=== PATIENT | female | born 1980 | race Caucasian/White ===

== ENCOUNTER → 2018-01-10 07:54 | Outpatient (CLI) | payer OTHER, SELFPAY ==
[2018-01-10 10:18] LABS: Hematocrit 41.7 % (37-47); Hemoglobin 14.3 g/dl (12.0-15.0); Mean Corp Hgb Conc 34.3 g/gl (32-36); Mean Corpuscular Hgb 30.3 pg (27.0-32.0); Mean Corpuscular Volume 88.3 fL (81-99); Mean Platelet Vol. 10.1 fl (6.2-12.0); Platelet Count 350 K/mm3 (150-450); RBC Distribution Width CV 13.3 % (11.6-14.6); RBC Distribution Width SD 42.7 fl (35.1-43.9); Red Blood Count 4.72 M/mm3 (4.2-5.4); White Blood Count 6.3 K/mm3 (4.4-11.0)
[2018-01-10 10:22] LABS: Scan Indicated on CBC? Y/N NO
[2018-01-10 10:33] LABS: Insulin 9.8 mU/L (2.6-37.6); Vitamin D,25 Hydroxy 26.7 ng/mL (29.95-100.01)
[2018-01-10 10:35] LABS: Hemoglobin A1c 5.3 % (4.2-6.3)
[2018-01-10 10:36] LABS: ALB/GLOB Ratio 0.9 RATIO (0.9-2.4); AST(SGOT) 19 U/L (15-37); Alanine Aminotransfer ALT/SGPT 26 U/L (13-56); Albumin, Serum 3.6 g/dL (3.2-5.0); Alkaline Phosphatase 80 U/L (45-117); Anion Gap 6 (5-15); BUN 13 mg/dL (7-18); BUN/Creat Ratio 18.1 RATIO (10-20); Calcium,Total 8.5 mg/dL (8.5-10.1); Chloride 106 mmol/L (98-107); Creatinine, Serum 0.72 mg/dL (0.55-1.02); EST Glomerular Filtration Rate 97 mL/min (>60); Est Glom Filt Rate - Afr Amer 117 mL/min (>60); Estradiol 35.7 pg/mL; Follicle Stimulating Hormone 6.9 mIU/mL; Free T3 2.8 pg/mL (2.18-3.98); Globulin 4.2 g/dL (2.2-4.2); Glucose 83 mg/dL (74-106); Potassium 3.9 mmol/L (3.5-5.1); Prolactin 21.7 ng/mL; Protein, Total 7.8 g/dL (6.4-8.2); Sodium Level 138 mmol/L (136-145); T4 Free Direct 1.02 ng/dL (0.76-1.46); Thyroid Stim Hormone (TSH) 1.33 uIU/mL (0.358-3.74)
[2018-01-12 16:09] LABS: DHEA Sulfate 183.1 ug/dL (57.3-279.2); Thyroxin Bind Glob (TBG) 15 ug/mL (13-39)
[2018-01-13 10:03] LABS: Androstenedione 46 ng/dL (41-262); Sex Hormone-binding Globulin 44.4 nmol/L (24.6-122.0)
== END ==
PROVIDERS: Visit Provider Obstetrics & Gynecology
DX: N94.6 Dysmenorrhea, unspecified (principal)
CPT/HCPCS: 36415; 80053; 82157; 82306; 82533; 82627; 82670; 83001; 83036; 83525; 84146; 84270; 84403; 84439; 84442; 84443; 84481; 85027; 82626

== ENCOUNTER → 2018-02-18 16:33 | Outpatient (CLI) | payer OTHER, SELFPAY ==
[2018-02-18 20:03] LABS: Chlamydia Trachomatis by PCR Negative (Negative); Neisserai gonorrhoeae by PCR Negative (Negative); Probe Check PASS; Sample Adequacy Control PASS; Specimen Processing Control PASS
== END ==
PROVIDERS: Visit Provider Obstetrics & Gynecology
DX: Z12.4 Encounter for screening for malignant neoplasm of cervix (principal); Z11.3 Encounter for screening for infections with a predominantly sexual mode of transmission; Z32.01 Encounter for pregnancy test, result positive
CPT/HCPCS: 87491; 87591

== ENCOUNTER → 2018-05-16 10:28 | Outpatient (CLI) | payer OTHER, SELFPAY ==
[2018-05-16 14:34] LABS: Chlamydia Trachomatis by PCR Negative (Negative); Neisserai gonorrhoeae by PCR Negative (Negative); Probe Check PASS; Sample Adequacy Control PASS; Specimen Processing Control PASS
== END ==
PROVIDERS: Visit Provider Obstetrics & Gynecology
DX: Z11.3 Encounter for screening for infections with a predominantly sexual mode of transmission (principal)
CPT/HCPCS: 87491; 87591

== ENCOUNTER → 2018-06-06 10:25 | Outpatient (CLI) | payer OTHER, SELFPAY ==
[2018-06-06 11:47] LABS: Color, Urine Yellow (Yellow); Glucose, Dipstick Normal (Normal); Ketone-Dipstick Negative (Negative); Leukocyte Esterase-Dipstick 25 /ul (Negative); Nitrite-Dipstick Negative (Negative); Occult Blood-Urine Negative /ul (Negative); Protein-Dipstick Negative (Negative); Specific Gravity, Urine 1.015 (1.002-1.030); Urine Bilirubin Dipstick Negative (Negative); Urine Clarity Clear (Clear); Urine Urobilinogen Normal (Normal); Urine pH 6.5 (5.0 - 8.0)
[2018-06-06 11:52] LABS: Absolute Lymphocyte Count 2.25 X10^3/ul (0.83-4.51); Absolute Neutrophil Count 5.9 X10^3/uL (2.0-7.7); Basophil# 0.02 X10^3/uL; Basophil% 0.2 % (0-1); Eosinophil# 0.04 X10^3/uL; Eosinophils% 0.5 % (0-5); Hematocrit 39.9 % (37-47); Hemoglobin 13.3 g/dl (12.0-15.0); Lymphocyte # 2.25 X10^3/ul (4.0); Lymphocyte % 25.6 % (19-41); Mean Corp Hgb Conc 33.3 g/gl (32-36); Mean Corpuscular Hgb 29.5 pg (27.0-32.0); Mean Corpuscular Volume 88.5 fL (81-99); Mean Platelet Vol. 9.7 fl (6.2-12.0); Monocyte# 0.55 X10^3/uL; Monocyte% 6.3 % (0-10); Neutrophil # 5.91 X10^3/uL (2.7-7.7); Neutrophil % 67.3 % (47-70); Platelet Count 293 K/mm3 (150-450); RBC Distribution Width CV 13.5 % (11.6-14.6); RBC Distribution Width SD 43.4 fl (35.1-43.9); Red Blood Count 4.51 M/mm3 (4.2-5.4); White Blood Count 8.8 K/mm3 (4.4-11.0)
[2018-06-06 11:55] LABS: POSITIVE COUNT NO; POSITIVE DIFFERENTIAL NO; POSITIVE MORPHOLOGY NO
[2018-06-06 12:12] LABS: Thyroid Stim Hormone (TSH) 0.03 uIU/mL (0.358-3.74)
[2018-06-06 12:13] LABS: Amphetamine Urine VISTA NEGATIVE (<1000 ng/mL); Barbiturate Urine VISTA NEGATIVE (< 200 ng/mL); Benzodiazepine Urine VISTA NEGATIVE (< 200 ng/mL); Cocaine Urine VISTA NEGATIVE (< 300 ng/mL); Ecstacy Urine VISTA NEGATIVE (< 500 ng/mL); Methadone Urine VISTA NEGATIVE (< 300 ng/mL); PCP Urine VISTA NEGATIVE (< 25 ng/mL); THC Urine VISTA NEGATIVE (< 50 ng/mL); Vista UDS pH Range 6
[2018-06-06 12:53] LABS: HIV - WCH Non-Reactive (Nonreactive)
[2018-06-07 09:53] LABS: HEPATITIS B SURFACE AG Negative (Negative); Hep C Antibodies <0.1 s/co ratio (0.0-0.9)
[2018-06-08 14:16] LABS: Free T3 3.2 pg/mL (2.18-3.98); T4 Free Direct 1.16 ng/dL (0.76-1.46)
[2018-06-10 03:49] LABS: Prenatal RPR NONREACTIVE (NONREACTIVE)
== END ==
PROVIDERS: Visit Provider Obstetrics & Gynecology
DX: Z34.81 Encounter for supervision of other normal pregnancy, first trimester (principal); R79.89 Other specified abnormal findings of blood chemistry
CPT/HCPCS: 36415; 80307; 81002; 84439; 84443; 84481; 85025; 86703; 86762; 86803; 87340

== ENCOUNTER → 2018-08-01 13:45 | Outpatient (CLI) | payer OTHER, SELFPAY | PROVIDERS: Visit Provider Obstetrics & Gynecology | DX: Z34.82 Encounter for supervision of other normal pregnancy, second trimester (principal) ==

== ENCOUNTER → 2018-10-17 09:57 | Outpatient (CLI) | payer OTHER, SELFPAY ==
[2018-10-17 11:02] LABS: Hematocrit 34.3 % (37-47); Hemoglobin 11.3 g/dl (12.0-15.0); Mean Corp Hgb Conc 32.9 g/gl (32-36); Mean Corpuscular Hgb 29.7 pg (27.0-32.0); Mean Platelet Vol. 9.4 fl (6.2-12.0); Platelet Count 259 K/mm3 (150-450); RBC Distribution Width CV 13.7 % (11.6-14.6); RBC Distribution Width SD 44.7 fl (35.1-43.9); Red Blood Count 3.81 M/mm3 (4.2-5.4); White Blood Count 8.3 K/mm3 (4.4-11.0)
[2018-10-17 11:05] LABS: Scan Indicated on CBC? Y/N NO
[2018-10-17 11:10] LABS: Glucose Challenge Gest 1H 50g 96 mg/dL (70-140)
[2018-10-17 11:24] LABS: Vitamin D,25 Hydroxy 31.3 ng/mL (29.95-100.01)
== END ==
PROVIDERS: Visit Provider Obstetrics & Gynecology
DX: Z34.83 Encounter for supervision of other normal pregnancy, third trimester (principal)
CPT/HCPCS: 36415; 82306; 82950; 85027

== ENCOUNTER → 2018-12-12 10:38 | Outpatient (CLI) | payer OTHER, SELFPAY | PROVIDERS: Visit Provider Obstetrics & Gynecology | DX: Z36.85 Encounter for antenatal screening for Streptococcus B (principal) | CPT/HCPCS: 87081 ==

== ENCOUNTER 2019-01-10 02:53 | Outpatient (CLI) | payer OTHER, SELFPAY ==
[2019-01-10 03:14] VITALS: BMI 37.5
[2019-01-10 03:48] LABS: ROM Internal Control Test YES-OK TO RESULT pt. (Internal QC); ROM Patient Test Negative (Negative); Record Kit Lot#, ROM+ J7836
--- NOTE | 2019-01-17 08:08 | OB.TRI.NOTE ---
History of Present Illness Date of Service: 01/10/19 Was patient seen by the physician?: No Reason For Visit: R/O LABOR Date of Service: 01/10/19 Final SHAKIR: 01/04/19 Final SHAKIR Source: US <20 weeks Gestational age: 40 Weeks and 6 Days History of Present Illness: 38 yo female presents for labor check with ? SROM. Allergies No Known Allergies Allergy (Verified 01/12/19 07:25) - Pertinent Past Medical History Medical History: Past Medical History (Last Updated 01/12/19 @ 13:12 by Danisha New MD) Congenital dysplasia of left hip Knee cap dislocation right Laboratory Studies: Laboratory Tests 01/10/19 Range/Units 02:12 Vag Amniotic Fld Detect Negative (Negative) NST - FHR Rate Baby A Baseline: 110-120s with av variablity. accels to 140s. early decl to 90s Variability:: Moderate Accelerations:: 15 x 15 Decelerations:: Early NST Reactive:: Yes, Appropriate for gestational age FHR Category:: Category I Uterine Activity:: Irregular UCs Impression/Plan 40 6/7 wk False labor. Neg SROM Reactive NST Home to keep appt in office / induction planned.
== END 2019-01-10 04:25 | disposition home or self-care (01) ==
LOC: WPOUT 03:12 → WP 03:13
PROVIDERS: Visit Provider Obstetrics & Gynecology
DX: O47.1 False labor at or after 37 completed weeks of gestation (principal); Z3A.40 40 weeks gestation of pregnancy; O09.523 Supervision of elderly multigravida, third trimester
CPT/HCPCS: 59025; 59050; 84112; 99218; G0378

== ENCOUNTER 2019-01-12 07:10 | Inpatient (IN) | payer OTHER, SELFPAY ==
[2019-01-12 07:21] VITALS: BMI 37.8
[2019-01-12] MEDS: 0.9% Saline Lock 10 ML Syringe IV (07:30)
[2019-01-12 07:56] LABS: Absolute Lymphocyte Count 3.04 X10^3/ul (0.83-4.51); Absolute Neutrophil Count 5.6 X10^3/uL (2.0-7.7); Basophil# 0.04 X10^3/uL; Basophil% 0.4 % (0-1); Eosinophil# 0.11 X10^3/uL; Eosinophils% 1.1 % (0-5); Hemoglobin 12.5 g/dl (12.0-15.0); Lymphocyte # 3.04 X10^3/ul (4.0); Lymphocyte % 31.8 % (19-41); Mean Corp Hgb Conc 33.8 g/gl (32-36); Mean Corpuscular Hgb 29.5 pg (27.0-32.0); Mean Corpuscular Volume 87.3 fL (81-99); Mean Platelet Vol. 11.1 fl (6.2-12.0); Monocyte# 0.74 X10^3/uL; Monocyte% 7.7 % (0-10); Neutrophil # 5.61 X10^3/uL (2.7-7.7); Neutrophil % 58.7 % (47-70); Platelet Count 214 K/mm3 (150-450); RBC Distribution Width CV 14.4 % (11.6-14.6); RBC Distribution Width SD 45.4 fl (35.1-43.9); Red Blood Count 4.24 M/mm3 (4.2-5.4); White Blood Count 9.6 K/mm3 (4.4-11.0)
[2019-01-12 08:03] LABS: POSITIVE COUNT NO; POSITIVE DIFFERENTIAL NO; POSITIVE MORPHOLOGY NO
[2019-01-12] MEDS: miSOPROStol 25 MCG TABLET PO ×3 (08:30→13:16)
--- NOTE | 2019-01-12 13:14 | HP.PCM_ITS ---
- Problem List (1) 41 weeks gestation of Status: Acute History Date of Admission: 01/12/19 Final SHAKIR: 01/04/19 Final SHAKIR Source: US <20 weeks Gestational age: 41 Weeks and 2 Days History of this : This is a 38 year-old, G [2], P [0010], at 41 weeks gestational age. 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 right Allergies No Known Allergies Allergy (Verified 01/12/19 07:25) Home Medications: Home Medications Fluticasone 0.05% [Flonase Nasal [place]] 2 spray NASAL DAILY 01/10/19 Pnv No.103/Folic/Om3s/Fish Oil [ Gummies] 1 each PO DAILY 01/10/19 Smoking Status: Never smoker Alcohol: None Number of Fetus(es): 1 Heart Tracin, moderate variability, + accelerations, no decelerations TOCO Analysis: 0 History Past Pregnancies: Past Pregnancies Delivery Date Name GA/Weeks Outcome Route Weight Infant Gender Labor Length Anesthesia Delivery Location Provider FOB 02/2018 6 SAB SAB Labs: Mom's Problem List Problem Status Onset Code 41 weeks gestation of Acute Z3A.41 Mom's Labs & Results 01/12/19 01/12/19 07:30 07:30 WBC 9.6 RBC 4.24 Hgb 12.5 Hct 37.0 MCV 87.3 MCH 29.5 MCHC 33.8 RDW 14.4 RDW Differential 45.4 H Plt Count 214 MPV 11.1 Immature Gran % (Auto) 0.300 Neut % (Auto) 58.7 Lymph % (Auto) 31.8 [place] % (Auto) 7.7 Eos % (Auto) 1.1 Baso % (Auto) 0.4 Absolute Neuts (auto) 5.6 Absolute Lymphs (auto) 3.04 Total Counted Not Reportable Blood Type A POSITIVE Antibody Screen NEGATIVE Course Did the patient receive Yes care? Labs Blood Type: A RH: POSITIVE RPR/VDRL/Syphilis Nonreactive Rubella status Equivocal HbSAg Negative Date Done: 06/06/18 Chlamydia Negative Gonorrhea Negative HIV/AIDS Non-Reactive Group B Strep: Negative Current Obstetrical History Gestational Diabetes No Incompetent Cervix No Infertility No IUGR No Macrosomia No Hypertension/Pre-eclampsia No Placenta Previa/Abruption No PTL/PROM No Uterine anomaly No Oligohydramnios No Polyhydramnios No Multiple gestation No Past Medical History Asthma Yes: uses inhaler for sports induced asthma Diabetes No Hypertension No Heart disease No Mitral valve prolapse No Neurologic/Seizure disorder/ No Migraines Kidney disease No Liver disease No Varicosities No Clotting disorders/Hx of DVT No Thyroid Dysfunction No Other medical diseases No Psychiatric disorders No Major trauma No Abnormal PAP smear Yes: 2007 Sleep apnea No Mammogram in the last 2 years No Social History Marital Status: Alleged father Yon Hx Smoking No Smoking Status Never smoker How long have you used n/a substances (years)? Expected Infant Delivery Method: Spontaneous Vaginal Describe any other labor & delivery plans:: Cytotec for induction of labor Number of Visits: 14 Physical Exam Vitals: avss General: Alert, Oriented x3, Cooperative, No apparent distress HEENT: Atraumatic, Normocephalic Cardiovascular: Regular Rhythm Lungs: Normal air movement Abdomen: Soft, Non Tender, Non-Distended, Gravid Extremities:: No edema Neurological: Neuro grossly intact TURNTABLE OPERATOR: Normal external genitalia Estimated gestational size: Appropriate for gestational size Presentation: Cephalic Cervix Dilation (cm): 1 Station: -3 Effacement (%): 0 Assessment/Plan All Active Problems (Last Updated 01/12/19 @ 13:12 by Danisha New MD) 41 weeks gestation of (Acute) This is a 38 year-old, G [2], P [0010], at 41 1/7 weeks gestational age for IOL, Cat I FHR -Maternal and statuses reassuring -Cytotec for cervical ripening
[2019-01-12] MEDS: 0.9% Normal Saline 100 ML IV.SOLN. INTRA-UTER (17:40)
--- NOTE | 2019-01-12 17:47 | PCM.PN.BLA ---
Progress Note LABOR PROGRESS NOTE Notes cramping regularly. + FM. No complaints. AVSS GEN - NAD, AAO x 3 SVE 1.5/50/-3, soft, anterior FHR 130, moderate variability, + accelerations, no decelerations TOCO 3-4/10 min A/P: 38yo @ 41 1/7wga IOL, Cat I FHR -Maternal and statuses reassuring -s/p cytotec x 2 doses - 25 and 50mcg -Avila bulb placed -If no change in status, will start pitocin in 2 hours.
[2019-01-12] MEDS: Oxytocin 30 units/NS 500 ml 30 UNITS/500 ML IV.SOLN IV (20:38)
[2019-01-12] MEDS: Lactated Ringers 1,000 ML 50 ML IV ×2 (20:38→23:00)
[2019-01-12] MEDS: fentaNYL-bupivacaine (epidural) 100 ML BAG EPIDURAL (23:25)
[2019-01-13] VITALS (18 sets, daily range): BP systolic 116–152; BP diastolic 62–97; PULSE 92–108; RESP 15–18; TEMP 36.6–37.5; O2SAT 93–98
[2019-01-13] MEDS: fentaNYL-bupivacaine (epidural) 100 ML BAG EPIDURAL (04:00)
--- NOTE | 2019-01-13 04:45 | PN.OBGYN_ITS ---
Patient Problems: Active and Suspected Problems (Last Updated 01/12/19 @ 13:12 by Danisha Lebron MD) 41 weeks gestation of (Acute) Subjective: Comfortable with epidural in place. Objective: AFeb VSS FHR low at times but overall Cat 1 tracing. - Physical Exam General: Alert, Oriented x3, Cooperative, No apparent distress Lungs: Clear to auscultation, Normal air movement Cardiovascular: Regular rate, Regular Rhythm Abdomen: Soft, Non Tender, Non-Distended, Gravid, Appropriate for Gestational Age Psych/Mental Status: Normal Affect Comment: AROM performed with clear fluid noted Weight: 200 lb 2 oz Body Mass Index (BMI) 37.8 Laboratory Tests Past 24 Hrs 01/12/19 01/12/19 07:30 07:30 WBC 9.6 RBC 4.24 Hgb 12.5 Hct 37.0 MCV 87.3 MCH 29.5 MCHC 33.8 RDW 14.4 RDW Differential 45.4 H Plt Count 214 MPV 11.1 Immature Gran % (Auto) 0.300 Neut % (Auto) 58.7 Lymph % (Auto) 31.8 [place] % (Auto) 7.7 Eos % (Auto) 1.1 Baso % (Auto) 0.4 Absolute Neuts (auto) 5.6 Absolute Lymphs (auto) 3.04 Total Counted Not Reportable Blood Type A POSITIVE Antibody Screen NEGATIVE Medical Necessity - Tobacco Use Smoking Status: Never smoker Assessment/Plan All Active Problems (Last Updated 01/12/19 @ 13:12 by Danisha New MD) 41 weeks gestation of (Acute) Cervix now 4 cm 40% effaced. AROM performed with clear fluid noted. Internal monitors placed.
[2019-01-13] MEDS: Lactated Ringers 1,000 ML 50 ML IV ×2 (06:47→10:52)
--- NOTE | 2019-01-13 07:40 | PCM.PN.BLA ---
Progress Note LABOR PROGRESS NOTE Dayana feels overwhelmed. Reports intense back labor and has some relief with epidural, but not much. AVSS GEN - NAD, AAO x 3 FHR 120, moderate variability, + accelerations, + variable deceleration, + late deceleration TOCO 4-5/10 min, MVU 200 SVE deferred, recent exam /-2 per RN Pitocin at 10mu/min A/P: 38yo @ 41 2/7wga, IOL, Cat II FHR -Previously Cat I FHR - will continue to monitor -Maternal and statuses overall reassuring
[2019-01-13] MEDS: Ondansetron 4 MG/2 ML Vial IV (09:58)
--- NOTE | 2019-01-13 13:14 | PCM.PN.BLA ---
Progress Note 38yo G1 @ 41 2/7wga IOL on pitocin. Patient reported severe painfulness with contractions in back. BP 162/93, GEN - appears very uncomfortable with contraction despite epidural. FHR 135, moderate variability, no accelerations, + variable deceleration. TOCO 3-4/10 min. SVE 5/80/-3, moderate and midposition. Discussed with patient and no change in exam. Given 5cm for more than 6 hours I advised section. FHR Cat II, but overall reassuring and discussed continuation in labor as alternative. Reviewed risks including pain, bleeding, infection, injury to bowel or bladder, need for further surgery, possibly dilation and curettage or hysterectomy, VTE, scarring, nerve injury. Patient and spouse given opportunity to ask questions and questions answered to their satisfaction. Patient opts to proceed with section. Pitocin discontinued. Anesthesiology notified.
--- NOTE | 2019-01-13 14:43 | PCM.OPRPT ---
Problem List (1) 41 weeks gestation of Status: Acute Report of Operation Date of Procedure: 01/13/19 Surgery/Procedure Performed:: section Description of Surgical Findings:: Few small subserosal uterine fibroids. Normal tubes and ovaries bilaterally. equipment validation engineer: Joby Cano Type of Anesthesia:: General Anesthesiologist: Marbin Warren Delivery Classification: POLA Final SHAKIR: 01/04/19 Final SHAKIR Source: [place] <20 weeks Gestational age: 41 Weeks and 2 Days [place] doctor who attended delivery (if requested by OB): Amrita Elliott Indications: 38yo @ 41 2/7wga admitted for induction of labor. She received cytotec, cross bulb then pitocin and progressed to 5-5.5cm dilation without further cervical global director air and climate change more than 6 hours with adequate contractions. I recommended section and reviewed r/b/i/a. Patient desired to proceed. Indications for : - - Arrest of dilation Description of Procedure: Patient was taken to the operating room and placed into the dorsal supine position with left lateral tilt. The abdomen and perineum were prepped and draped in sterile fashion. Her epidural however was not adequate thus she was inducted under general anesthesia and intubated. A Pfannensteil incision was made and brought down to incise the rectus fascia at the midline. The fascial incision was sharply extended laterally. The superior leaflet of the rectus fascia was grasped with Pilo clamps, then bluntly and sharply dissected from the underlying muscle. In similar fashion the inferior rectus fascia was from the underlying muscle. The rectus muscles were bluntly at the midline. The peritoneum was sharply and bluntly dissected through preperitoneal adipose tissue and the peritoneal incision extended. The vesicouterine peritoneum was identified and incised with bladder flap created. The bladder blade was placed in the abdomen. A low transverse hysterotomy was made using the Metzembaum scissors. The head was elevated to the hysterotomy and male infant delivered with terminal meconium. The mouth and nares were suction, the cord doubly clamped and cut and the infant passed to the awaiting nursery personnel. The placenta did not deliver with expression, thus it was manual removed. The uterus was exteriorized and cleared of debris. The bladder blade was repositioned in the abdomen. The hysterotomy was repaired using 0 Vicryl running locked suture. A second imbricating layer was placed. The uterus and adnexa were returned to the abdomen and the hysterotomy reinspected. A single horizontal mattress suture 0 Vicryl was placed that the hysterotomy with hemostasis obtained. The bladder blade was removed. The peritoneum was reapproximated with 2-0 Vicryl. Gloves were changed. The rectus fascia was reapproximated using 0-Stratafix. Capillary bleeding in the subcutaneous tissue was controlled using the Bovie. The subcutaneous tissue was reapproximated using 2-0 Vicryl. The skin was reapproximated using 4-0 Monocryl by the AUTOMOTIVE CUSTOMER EXPERIENCE ADVISOR under my supervision. A Mepilex occlusive dressing was placed over the incisional wound. The fundus was firm at the umbilicus. Sponge, instrument and needle counts were correct x 2. Patient was awakened, extubated and transferred to the recovery room without complication. She tolerated the procedure well. Amniotic Membrane Rupture Type: Artificial Amniotic Fluid Description: Clear Placenta Disposition: [facility] Drain: Cross to straight drain Fluids Replaced: 1000 ml Cord Entanglement: Around neck x 1, loose Nuchal Cord Compression: Without compression Cord Vessel Description: 3 Vessels Esitmated Blood Loss (ml): 600 Gender: Male (1 minute): 3 (5 minute): 6 - 8 at 10 minutes Pre-op Antibiotic Given: Ancef 2 grams IV x1 Pt instructed on risks of surgery: Bleeding, Anesthesia Risks, Infection, Injury to surrounding structure(s) including bowel and bladder Complications: None - Admit VTE Documentation VTE Present on Admission: No VTE Mechan Device Prophylaxis: SCD's VTE Pharm Prophylaxis ordered?: No
--- NOTE | 2019-01-13 14:47 | OP.PCM_ITS ---
Problem List (1) 41 weeks gestation of Status: Acute Report of Operation Date of Procedure: 01/13/19 Surgery/Procedure Performed:: section Description of Surgical Findings:: Few small subserosal uterine fibroids. Normal tubes and ovaries bilaterally. economics department chair: Joby Cano Type of Anesthesia:: General Anesthesiologist: Marbin Warren Delivery Classification: POLA Final SHAKIR: 01/04/19 Final SHAKIR Source: US <20 weeks Gestational age: 41 Weeks and 2 Days [place] doctor who attended delivery (if requested by OB): Amrita Elliott Indications: 38yo @ 41 2/7wga admitted for induction of labor. She received cytotec, cross bulb then pitocin and progressed to 5-5.5cm dilation without further cervical place change roof bolter more than 6 hours with adequate contractions. I recommended section and reviewed r/b/i/a. Patient desired to proceed. Indications for : - - Arrest of dilation Description of Procedure: Patient was taken to the operating room and placed into the dorsal supine position with left lateral tilt. The abdomen and perineum were prepped and draped in sterile fashion. Her epidural however was not adequate thus she was inducted under general anesthesia and intubated. A Pfannensteil incision was made and brought down to incise the rectus fascia at the midline. The fascial incision was sharply extended laterally. The superior leaflet of the rectus fascia was grasped with Pilo clamps, then bluntly and sharply dissected from the underlying muscle. In similar fashion the inferior rectus fascia was from the underlying muscle. The rectus muscles were bluntly at the midline. The peritoneum was sharply and bluntly dissected through preperitoneal adipose tissue and the peritoneal incision extended. The vesicouterine peritoneum was identified and incised with bladder flap created. The bladder blade was placed in the abdomen. A low transverse hysterotomy was made using the Metzembaum scissors. The head was elevated to the hysterotomy and male infant delivered with terminal meconium. The mouth and nares were suction, the cord doubly clamped and cut and the infant passed to the awaiting nursery personnel. The placenta did not deliver with expression, thus it was manual removed. The uterus was exteriorized and cleared of debris. The bladder blade was repositioned in the abdomen. The hysterotomy was repaired using 0 Vicryl running locked suture. A second imbricating layer was placed. The uterus and adnexa were returned to the abdomen and the hysterotomy reinspected. A single horizontal mattress suture 0 Vicryl was placed that the hysterotomy with hemostasis obtained. The bladder blade was removed. The peritoneum was reapproximated with 2-0 Vicryl. Gloves were changed. The rectus fascia was reapproximated using 0-Stratafix. Capillary bleeding in the subcutaneous tissue was controlled using the Bovie. The subcutaneous tissue was reapproximated using 2-0 Vicryl. The skin was reapproximated using 4-0 Monocryl by the MARKETING DIRECTOR ASSISTED LIVING under my supervision. A Mepilex occlusive dressing was placed over the incisional wound. The fundus was firm at the umbilicus. Sponge, instrument and needle counts were correct x 2. Patient was awakened, extubated and transferred to the recovery room without complication. She tolerated the procedure well. Amniotic Membrane Rupture Type: Artificial Amniotic Fluid Description: Clear Placenta Disposition: [facility] Drain: Cross to straight drain Fluids Replaced: 1000 ml Cord Entanglement: Around neck x 1, loose Nuchal Cord Compression: Without compression Cord Vessel Description: 3 Vessels Esitmated Blood Loss (ml): 600 Gender: Male (1 minute): 3 (5 minute): 6 - 8 at 10 minutes Pre-op Antibiotic Given: Ancef 2 grams IV x1 Pt instructed on risks of surgery: Bleeding, Anesthesia Risks, Infection, Injury to surrounding structure(s) including bowel and bladder Complications: None - Admit VTE Documentation VTE Present on Admission: No VTE Mechan Device Prophylaxis: SCD's VTE Pharm Prophylaxis ordered?: No
--- NOTE | 2019-01-13 15:02 | DCINST_ITS ---
Discharge Diet: No Restrictions Discharge Activity: Return to Normal Activity, May not drive while taking narcotic pain medications., May Shower May resume sexual activity in: 4-6 weeks Lifting Restrictions: 10 lb Suture Line Care: Avoid Pulling/Pushing Remove Dressing in (days):: 5 Cleanse incision/area with: Soap & Water Additional Instructions: If you experience any of the following, contact your healthcare provider. * Bleeding that soaks a pad every hour for 2 hours * Fever 100.4 or higher * Unrelieved incision or abdominal pain * Swelling, redness, discharge or bleeding from your incision or episiotomy site * Your incision begins to separate * Problems urinating (including inability to urinate or burning while urinating). * Visual changes * Severe headache * Flu-like symptoms * Pain or redness in one of both of your breasts * Pain, warmth, tenderness or swelling in your legs, especially the calf area * Frequent nausea and vomiting * Symptoms of depression or anxiety If you experience any of the following, call 911 or go to the nearest Emergency Room. * Chest pain * Problems breathing * Seizure activity * Partial or complete paralysis of a body part, slurred speech, weakness or drooping of the face, or a sudden inability to walk or hold your balance Allergies/Adverse Reactions: Allergies No Known Allergies Allergy (Verified 01/12/19 07:25) Medications to take at Discharge Fluticasone 0.05% [Flonase Nasal [place]] 2 spray NASAL DAILY 01/10/19 Pnv No.103/Folic/Om3s/Fish Oil [ Gummies] 1 each PO DAILY 01/10/19 Ibuprofen [Motrin] 600 mg PO TID PRN #30 tablet 01/16/19 Oxycodone [Oxyir] 5 mg PO Q6H PRN PRN 7 Days #10 tablet 01/16/19 The following prescriptions were given: Oxycodone [Oxyir] 5 mg PO Q6H PRN PRN 7 Days #10 tablet PRN Reason: Mod-Severe Pain (-07/20) Ibuprofen [Motrin] 600 mg PO TID PRN #30 tablet PRN Reason: Pain Follow-Up: Call to make an appointment with your doctor for an incision check in 1-2 weeks. You will also need a 6 week post- follow up appointment. Test results from this visit will be discussed in further detail at your follow- up appointment, if applicable. Please Follow Up With: Yon Warren MD - incision check When: 5-7 days Primary Care Physician: Care Physician,No Primary [Primary Care Provider] -
[2019-01-13] MEDS: Lactated Ringers 1,000 ML 150 ML IV (18:03)
[2019-01-13] MEDS: Ketorolac 30 MG/ML Syringe IV (20:53)
[2019-01-13] MEDS: 0.9% Saline Lock 10 ML Syringe IV (20:53)
[2019-01-13] MEDS: Acetaminophen 500 MG Tablet 1000 MG PO (21:42)
[2019-01-13] MEDS: Lactated Ringers 1,000 ML 999 ML IV (21:53)
[2019-01-14] VITALS (12 sets, daily range): BP systolic 124–139; BP diastolic 78–92; PULSE 84–103; RESP 16–18; TEMP 37.1–37.3; O2SAT 93–96
[2019-01-14] MEDS: Ketorolac 30 MG/ML Syringe IV ×4 (03:31→20:59)
[2019-01-14] MEDS: 0.9% Saline Lock 10 ML Syringe IV ×4 (03:31→20:59)
[2019-01-14] MEDS: Lactated Ringers 1,000 ML 75 ML IV (06:06)
[2019-01-14] MEDS: Acetaminophen 500 MG Tablet 1000 MG PO (06:06)
[2019-01-14] MEDS: Senna/Docusate Sodium 1 Tablet PO (06:06)
[2019-01-14 06:12] LABS: Hematocrit 29.3 % (37-47); Mean Corp Hgb Conc 34.1 g/gl (32-36); Mean Corpuscular Hgb 29.9 pg (27.0-32.0); Mean Corpuscular Volume 87.5 fL (81-99); Mean Platelet Vol. 10.5 fl (6.2-12.0); Platelet Count 166 K/mm3 (150-450); RBC Distribution Width CV 14.7 % (11.6-14.6); Red Blood Count 3.35 M/mm3 (4.2-5.4); White Blood Count 17.9 K/mm3 (4.4-11.0)
[2019-01-14 06:16] LABS: Scan Indicated on CBC? Y/N NO
--- NOTE | 2019-01-14 10:59 | PN.OBGYN_ITS ---
Patient Problems: Active and Suspected Problems (Last Updated 01/12/19 @ 13:12 by Danisha Lebron MD) delivery delivered (Acute) LTCS 41 weeks gestation of (Acute) Subjective: Patient without complaints. Tolerating diet well. Breast-feeding going well. Positive flatus. - Physical Exam Vital Signs Temp Pulse Resp BP Pulse Ox 98.7 F 93 18 126/78 H 93 01/14/19 08:00 01/14/19 08:00 01/14/19 08:00 01/14/19 08:00 01/14/19 08:00 Oxygen Delivery Method Room Air Weight: 200 lb 2 oz Body Mass Index (BMI) 37.8 Intake and Output for Last 24 Hours 01/12/19 01/13/19 01/14/19 23:59 23:59 23:59 Intake Total 6635 / 6635 1674 / 1674 Output Total 5275 / 5275 2049 / 2049 Balance 1360 / 1360 -376 / -376 Laboratory Tests Past 24 Hrs 01/14/19 05:50 WBC 17.9 H RBC 3.35 L Hgb 10.0 L Hct 29.3 L MCV 87.5 MCH 29.9 MCHC 34.1 RDW 14.7 H RDW Differential 47.0 H Plt Count 166 MPV 10.5 Wound is clean, dry, intact covered with dressing. Hemoglobin okay. Good urine output. Medical Necessity - Tobacco Use Smoking Status: Never smoker Assessment/Plan All Active Problems (Last Updated 01/12/19 @ 13:12 by Danisha New MD) delivery delivered (Acute) 41 weeks gestation of (Acute) Doing well day #1 status post primary section. Continuing present care.
[2019-01-14] MEDS: Fluticasone 0.05% 1 SPRAY NASAL.SRY 2 SPRAY NASAL (11:06)
--- NOTE | 2019-01-14 16:24 | NURSING ---
1145 Iv converted to saline lock. Avila catheter discontinued for 1500ml clear pale yellow urine. Assisted up to the bathroom, instructed in jeffrey care and displays understanding. States it feels good to get out of bed and walk. Yeison activity well.
[2019-01-14] MEDS: oxyCODONE 5 MG Tablet PO (22:01)
[2019-01-15] MEDS: Ketorolac 30 MG/ML Syringe IV (02:51)
[2019-01-15] MEDS: 0.9% Saline Lock 10 ML Syringe IV (02:52)
[2019-01-15 02:58] VITALS: BP 137/93; PULSE 93; RESP 16; TEMP 37
[2019-01-15] MEDS: Ibuprofen 600 MG Tablet PO ×2 (08:12→15:33)
[2019-01-15 08:15] VITALS: BP 138/94; PULSE 91; RESP 18; TEMP 36.7; O2SAT 96
--- NOTE | 2019-01-15 09:56 | PN.OBGYN_ITS ---
Patient Problems: Active and Suspected Problems (Last Updated 01/12/19 @ 13:12 by Danisha Lebron MD) delivery delivered (Acute) LTCS 41 weeks gestation of (Acute) Subjective: Patient without complaints. Tolerating diet well. Breast-feeding going well. Baby still in special care nursery with feeding tube in place as well as IV. Minimal vaginal bleeding. - Physical Exam Vital Signs Temp Pulse Resp BP Pulse Ox 98.1 F 91 18 138/94 H 96 01/15/19 08:15 01/15/19 08:15 01/15/19 08:15 01/15/19 08:15 01/15/19 08:15 Oxygen Delivery Method Room Air Weight: 200 lb 2 oz Body Mass Index (BMI) 37.8 Intake and Output for Last 24 Hours 01/13/19 01/14/19 01/15/19 23:59 23:59 23:59 Intake Total 6635 / 6635 1674 / 1674 Output Total 5275 / 5275 3550 / 3550 Balance 1360 / 1360 -1876 / -1876 Medical Necessity - Tobacco Use Smoking Status: Never smoker Assessment/Plan All Active Problems (Last Updated 01/12/19 @ 13:12 by Danisha New MD) delivery delivered (Acute) 41 weeks gestation of (Acute) Doing well postoperative day #2 status post primary section. Continuing present care.
[2019-01-15] MEDS: Fluticasone 0.05% 1 SPRAY NASAL.SRY 2 SPRAY NASAL (10:30)
[2019-01-15] MEDS: Prenatal Vits Tablet 1 TABLET PO (15:33)
[2019-01-15 20:00] VITALS: BP 119/82; PULSE 88; RESP 16; TEMP 37
[2019-01-15] MEDS: oxyCODONE 5 MG Tablet PO (22:12)
--- NOTE | 2019-01-15 22:49 | NURSING ---
pts breast have scabbed areas outside areola, changed up a size on flange on breast pump.
[2019-01-16] MEDS: Ibuprofen 600 MG Tablet PO ×3 (00:05→14:14)
[2019-01-16 01:06] VITALS: BP 124/82; PULSE 84; RESP 18; TEMP 36.4
--- NOTE | 2019-01-16 07:44 | PCM.PN.OB ---
Patient Problems: Active and Suspected Problems (Last Updated 01/12/19 @ 13:12 by Danisha New MD) delivery delivered (Acute) LTCS 41 weeks gestation of (Acute) Subjective: Pain is 4/10 at incision, manageable with Ibuprofen, but requires Oxycodone for comfort overnight. Passing flatus. Eating regular diet. No difficulty ambulating. Relates infant transferred to special care nursery for hypothermia. Objective: AVSS - Physical Exam General: Alert, Oriented x3, Cooperative, No apparent distress HEENT: Atraumatic, Normocephalic Lungs: Clear to auscultation, Normal air movement Cardiovascular: Regular rate, Regular Rhythm, Normal S1, Normal S2 Abdomen: Bowel Sounds Present, Soft, Non Tender, Non-Distended, - - Fundus firm and nontender, incisional dressing c/d/i Extremities: No Calf Tenderness, - - 1+ b/l LE edema Neurological: Neuro grossly intact Psych/Mental Status: Normal Affect, Appropriate, Alert and oriented to time, place, person, mood and affect Vital Signs Temp Pulse Resp BP Pulse Ox 97.6 F L 84 18 124/82 H 96 01/16/19 01:06 01/16/19 01:06 01/16/19 01:06 01/16/19 01:06 01/15/19 08:15 Oxygen Delivery Method Room Air Weight: 90.775 kg Body Mass Index (BMI) 37.8 Intake and Output for Last 24 Hours 01/14/19 01/15/19 01/16/19 23:59 23:59 23:59 Intake Total 1674 / 1674 Output Total 3550 / 3550 Balance -1876 / -1876 Medical Necessity - Tobacco Use Smoking Status: Never smoker Assessment/Plan All Active Problems (Last Updated 01/12/19 @ 13:12 by Danisha New MD) delivery delivered (Acute) 41 weeks gestation of (Acute) This is a 38 year-old, G [2], P [1011], POD#3 s/p PLTCS doing well. -Male in SCN -/pumping -Routine postop care -Plan for d/c tomorrow
[2019-01-16 08:32] VITALS: BP 125/85; PULSE 85; RESP 16; TEMP 37.1; O2SAT 97
[2019-01-16] MEDS: Prenatal Vits Tablet 1 TABLET PO (11:01)
[2019-01-16] MEDS: Fluticasone 0.05% 1 SPRAY NASAL.SRY 2 SPRAY NASAL (11:01)
--- NOTE | 2019-01-16 11:06 | NURSING ---
Observed med administration by Jerry Han, student nurse.
--- NOTE | 2019-01-16 11:08 | NURSING ---
Flonase and vitamin given with nursing educator Mirna Lew present.
--- NOTE | 2019-01-16 11:09 | NURSING ---
This instructor was present while Jerry Han administered the vitamin and flonaise.
--- NOTE | 2019-01-16 13:18 | NURSING ---
This vice president of nursing reviewed the documentation completed by Jerry Han and it is complete.
[2019-01-16 13:34] VITALS: BP 128/72; PULSE 79; RESP 16; TEMP 37.1; O2SAT 98
--- NOTE | 2019-01-16 13:42 | NURSING ---
1300 Mom very discouraged because she has been pumping every 3 hrs and no drips of colostrum. We discussed flange size and felt that her 28 flanges were too big and that could be ineffective in her output. We then noticed that she did not have the membranes on the flange so she was not getting an effective sucking from the pump. When milk started flowing from each breast about 6 minutes into the pumping Mom was very tearful but very excited to see that she truly does have some milk and will continue to work diligently to receive her milk production. Will continue to encourage Mom with feedings. Hernandez SCHMIDT IBCLC
--- NOTE | 2019-01-16 15:40 | DS.PCM_ITS ---
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 She progressed to 5cm dilation following cytotec, cross bulb and pitocin. She remained at 5cm for more than 6 hours, thus underwent section for arrest of dilation. Her post-operative course was unremarkable. She was out of bed, , tolerating a regular diet. Her infant was transferred to the [facility] however. Patient was discharged to home on post-op day #4. Patient Problems: Active and Suspected Problems (Last Updated 01/12/19 @ 13:12 by Danisha Lebron MD) delivery delivered (Acute) LTCS 41 weeks gestation of (Acute) - Physical Exam Vital Signs Temp Pulse Resp BP Pulse Ox 98.7 F 79 16 128/72 H 98 01/16/19 13:34 01/16/19 13:34 01/16/19 13:34 01/16/19 13:34 01/16/19 13:34 Oxygen Delivery Method Room Air Weight: 90.775 kg Body Mass Index (BMI) 37.8 Intake and Output for Last 24 Hours 01/14/19 01/15/19 01/16/19 23:59 23:59 23:59 Intake Total 1674 / 1674 Output Total 3550 / 3550 Balance -1876 / -1876 Discharge Diet: No Restrictions Discharge Activity: Return to Normal Activity, May not drive while taking narcotic pain medications., May Shower May resume sexual activity in: 4-6 weeks Suture Line Care: Avoid Pulling/Pushing Remove Dressing in (days):: 5 Cleanse incision/area with: Soap & Water Home Medications: Medications to take at Discharge Fluticasone 0.05% [Flonase Nasal [place]] 2 spray NASAL DAILY 01/10/19 Pnv No.103/Folic/Om3s/Fish Oil [ Gummies] 1 each PO DAILY 01/10/19 Ibuprofen [Motrin] 600 mg PO TID PRN #30 tablet 01/16/19 Oxycodone [Oxyir] 5 mg PO Q6H PRN PRN 7 Days #10 tablet 01/16/19 Following Prescrptions Were Given to Patient: Oxycodone [Oxyir] 5 mg PO Q6H PRN PRN 7 Days #10 tablet PRN Reason: Mod-Severe Pain (4-07/20) Ibuprofen [Motrin] 600 mg PO TID PRN #30 tablet PRN Reason: Pain Primary Care Physician: Care Physician,No Primary [Primary Care Provider] - Please Follow Up With: Yon Warren MD - incision check When: 5-7 days Medical Necessity - Tobacco Use Smoking Status: Never smoker <Maria Eugenia Damon - Last Filed: 01/17/19 08:00> Discharge Date and Diagnosis - Primary Discharge Diagnosis Active and Suspected Problems (Last Updated 01/12/19 @ 13:12 by Danisha Lebron MD) delivery delivered (Acute) LTCS 41 weeks gestation of (Acute) Hospital Course and Treatment Operations: - Summary of Care Provided: Patient remains stable postop. Milk in. remains in SCN with issues of hypothermia, insufficient feeding/ wt gain. Rienne to be dischgd to home today on POD#4 . Eligible for hotel status. - Physical Exam Vital Signs Temp Pulse Resp BP Pulse Ox 98.7 F 104 H 18 130/83 H 98 01/17/19 06:45 01/17/19 06:45 01/17/19 06:45 01/17/19 06:45 01/16/19 13:34 Oxygen Delivery Method Room Air Weight: 90.775 kg Body Mass Index (BMI) 37.8 Meaningful Use Info Meaningful Use Diagnoses (Choose all that apply): None applicable
[2019-01-16 20:20] VITALS: BP 131/74; PULSE 98; RESP 18; TEMP 36.9
[2019-01-16] MEDS: Senna/Docusate Sodium 1 Tablet PO (22:09)
[2019-01-16] MEDS: oxyCODONE 5 MG Tablet PO (22:12)
[2019-01-17 00:50] VITALS: BP 132/87; PULSE 92; RESP 18; TEMP 37.1
[2019-01-17 06:45] VITALS: BP 130/83; PULSE 104; RESP 18; TEMP 37.1
--- NOTE | 2019-01-17 07:53 | PCM.PN.OB ---
Patient Problems: Active and Suspected Problems (Last Updated 01/12/19 @ 13:12 by Danisha New MD) delivery delivered (Acute) LTCS 41 weeks gestation of (Acute) Subjective: POD#4 primary C/S for failure to progress 41+ wk induction Doing well Baby remains in SCN Issues with hypothermia and feeding. Low weight for 41 wks. States her milk is starting to come in and was able to nurse baby this am. Baby with OGT in place and supplementing after nursing also. Weight gain on baby is reportedly (by mother) not adequate yet and baby is to stay longer in SCN. - Physical Exam General: Alert, Oriented x3, Cooperative, No apparent distress HEENT: Atraumatic Oral: Moist Mucosa Neck: Supple Abdomen: Soft - Fundus firm minimally tender and at umbilicus Skin: Incision - Mepilex CDI. No erythema noted surrounding dressing. Neurological: Cranial nerves II-XII grossly intact Psych/Mental Status: Normal Affect Vital Signs Temp Pulse Resp BP Pulse Ox 98.7 F 104 H 18 130/83 H 98 01/17/19 06:45 01/17/19 06:45 01/17/19 06:45 01/17/19 06:45 01/16/19 13:34 Oxygen Delivery Method Room Air Weight: 90.775 kg Body Mass Index (BMI) 37.8 Medical Necessity - Tobacco Use Smoking Status: Never smoker Assessment/Plan All Active Problems (Last Updated 01/12/19 @ 13:12 by Danisha New MD) delivery delivered (Acute) 41 weeks gestation of (Acute) POD#4 Primary C/S 41 + wk induction failure to progress. Stable postop. Dischg home today. remains in SCN. Eligible for hotel status and explained to patient. 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 RTO in 2 wk for postop check. She will call to schedule this appointment soon.
[2019-01-17] MEDS: Ibuprofen 600 MG Tablet PO (07:55)
[2019-01-17 07:56] VITALS: BP 129/84; PULSE 90; RESP 18; TEMP 37; O2SAT 98
== END 2019-01-17 11:30 | disposition home or self-care (01) | DRG 788 ==
PROVIDERS: Admitting Provider Obstetrics & Gynecology; Referring Provider Obstetrics & Gynecology; Visit Provider Obstetrics & Gynecology
DX: O69.81X0 Labor and delivery complicated by cord around neck, without compression, not applicable or unspecified (principal); O62.0 Primary inadequate contractions; O34.13 Maternal care for benign tumor of corpus uteri, third trimester; D25.2 Subserosal leiomyoma of uterus; J45.909 Unspecified asthma, uncomplicated; Z3A.41 41 weeks gestation of pregnancy; Z37.0 Single live birth
CPT/HCPCS: 59025; 59050; 85025; 85027; 86850; 86900; 99218; J7120; A4216; G0378; J2405; J3490

== ENCOUNTER → 2019-02-22 13:30 | Outpatient (CLI) | payer OTHER, SELFPAY ==
[2019-02-22 16:33] LABS: Progesterone Level 0.28 ng/mL (See Comment)
== END ==
PROVIDERS: Visit Provider Obstetrics & Gynecology
DX: Z30.014 Encounter for initial prescription of intrauterine contraceptive device (principal)
CPT/HCPCS: 36415; 84144

== ENCOUNTER → 2019-02-24 13:36 | Outpatient (CLI) | payer OTHER, SELFPAY ==
[2019-02-24 16:47] LABS: Chlamydia Trachomatis by PCR Negative (Negative); Neisserai gonorrhoeae by PCR Negative (Negative); Probe Check PASS; Sample Adequacy Control PASS; Specimen Processing Control PASS
== END ==
PROVIDERS: Visit Provider Obstetrics & Gynecology
DX: Z11.3 Encounter for screening for infections with a predominantly sexual mode of transmission (principal); Z30.431 Encounter for routine checking of intrauterine contraceptive device
CPT/HCPCS: 87491; 87591

== ENCOUNTER → 2019-06-02 14:51 | Outpatient (CLI) | payer OTHER, SELFPAY ==
[2019-06-07 16:59] LABS: HPV APTIMA, High Risk Negative (Negative)
== END ==
PROVIDERS: Visit Provider Obstetrics & Gynecology
DX: Z12.4 Encounter for screening for malignant neoplasm of cervix (principal)
CPT/HCPCS: 87624; 88175; G0145

== ENCOUNTER → 2020-06-28 08:16 | Outpatient (CLI) | payer OTHER, SELFPAY ==
--- NOTE | 2020-06-28 08:36 | BI_ITS ---
MAMMOGRAPHY - BILATERAL SCREENING REASON FOR EXAM: Female, 40 years old. Routine annual screening examination. PERTINENT HISTORY: Grandmother with breast cancer. Aunt with breast cancer. TECHNIQUE: Digital bilateral breast lucas (3D mammographic acquisition) in the CC and MLO projections. 2-D mediolateral oblique (MLO) and craniocaudad (CC) views of both breasts were obtained. CAD: Full Field Digital Mammography with Computer Added Detection was performed. COMPARISON: None. Baseline examination. FINDINGS: Breast Composition: There are scattered areas of fibroglandular density. There are no dominant masses or suspicious calcifications. No other significant abnormalities are identified. BI/SCREEN MAMM (CAD) W/LUCAS BILAT IMPRESSION: Negative screening mammogram. Yearly followup mammogram recommended. (A) ASSESSMENT CATEGORY: BIRADS Category 1: Negative. A letter regarding these results will be sent to the patient by the facility within 30 days. Approximately 10% of breast cancers are not detected by mammography. A normal mammogram should not delay biopsy of a clinically suspicious abnormality. [id number] Electronically Signed: Hi Muir, at 10:22 EDT , Service support ,
== END ==
PROVIDERS: Referring Provider Obstetrics & Gynecology; Visit Provider Obstetrics & Gynecology
DX: Z12.31 Encounter for screening mammogram for malignant neoplasm of breast (principal); Z80.3 Family history of malignant neoplasm of breast
CPT/HCPCS: 77063; 77067

== ENCOUNTER → 2021-03-17 08:29 | Outpatient (CLI) | payer OTHER, SELFPAY ==
[2021-03-17 10:34] LABS: ALB/GLOB Ratio 0.8 RATIO (0.9-2.4); AST(SGOT) 19 U/L (15-37); Alanine Aminotransfer ALT/SGPT 24 U/L (13-56); Albumin, Serum 3.5 g/dL (3.2-5.0); Alkaline Phosphatase 78 U/L (45-117); Anion Gap 8 (5-15); BUN 10 mg/dL (7-18); BUN/Creat Ratio 12.8 RATIO (10-20); Chloride 104 mmol/L (98-107); Cholesterol 193 mg/dL (200); Creatinine, Serum 0.78 mg/dL (0.55-1.02); EST Glomerular Filtration Rate 87 mL/min (>60); Est Glom Filt Rate - Afr Amer 105 mL/min (>60); Globulin 4.4 g/dL (2.2-4.2); Glucose 89 mg/dL (74-106); High Density Lipoprotein 48 mg/dL; Potassium 4.1 mmol/L (3.5-5.1); Protein, Total 7.9 g/dL (6.4-8.2); Sodium Level 139 mmol/L (136-145); Triglycerides 124 mg/dL; Very Low Density Lipoprotein 25 mg/dL (5-40)
== END ==
PROVIDERS: Visit Provider Family Medicine
DX: E66.9 Obesity, unspecified (principal); Z13.1 Encounter for screening for diabetes mellitus
CPT/HCPCS: 36415; 80053; 80061

== ENCOUNTER → 2022-06-16 | Outpatient (CLI) | payer OTHER, SELFPAY ==
[2022-06-16 09:59] LABS: Absolute Lymphocyte Count 2.13 X10^3/uL (0.83-4.51); Absolute Neutrophil Count 4.4 X10^3/uL (2.0-7.7); Basophil# 0.05 X10^3/uL; Basophil% 0.7 % (0-1); Eosinophil# 0.07 X10^3/uL; Hematocrit 40.1 % (37-47); Hemoglobin 13.4 g/dL (12.0-15.0); Lymphocyte # 2.13 X10^3/ul (0.83-4.51); Mean Corp Hgb Conc 33.4 g/dL (32-36); Mean Corpuscular Hgb 29.3 pg (27.0-32.0); Mean Corpuscular Volume 87.7 fL (81-99); Mean Platelet Vol. 9.5 fl (6.2-12.0); Monocyte% 5.6 % (0-10); NRBC Flagged by Analyzer 0 % (0-5); Neutrophil # 4.42 X10^3/uL (2.7-7.7); Neutrophil % 62.4 % (47-70); Platelet Count 344 K/mm3 (150-450); RBC Distribution Width CV 13.6 % (11.6-14.6); RBC Distribution Width SD 43.7 fl (35.1-43.9); Red Blood Count 4.57 M/mm3 (4.2-5.4); White Blood Count 7.1 K/mm3 (4.4-11.0)
[2022-06-16 10:20] LABS: Hemoglobin A1c 5.5 % (3.8-5.6)
[2022-06-16 10:42] LABS: ALB/GLOB Ratio 0.8 RATIO (0.9-2.4); AST(SGOT) 17 U/L (15-37); Alanine Aminotransfer ALT/SGPT 28 U/L (13-56); Albumin, Serum 3.6 g/dL (3.2-5.0); Alkaline Phosphatase 68 U/L (45-117); Anion Gap 6 (5-15); BUN 15 mg/dL (7-18); BUN/Creat Ratio 18.2 RATIO (10-20); Calcium,Total 9.5 mg/dL (8.5-10.1); Chloride 107 mmol/L (98-107); Cholesterol 199 mg/dL (200); Creatinine, Serum 0.82 mg/dL (0.55-1.02); EST Glomerular Filtration Rate 81 mL/min (>60); Est Glom Filt Rate - Afr Amer 98 mL/min (>60); Globulin 4.5 g/dL (2.2-4.2); Glucose 90 mg/dL (74-106); High Density Lipoprotein 51 mg/dL; Potassium 4.1 mmol/L (3.5-5.1); Protein, Total 8.1 g/dL (6.4-8.2); Sodium Level 138 mmol/L (136-145); Triglycerides 91 mg/dL; Very Low Density Lipoprotein 18 mg/dL (5-40)
== END | disposition home or self-care (01) ==
LOC: MFPLAB 09:17
PROVIDERS: PCP Family Medicine; Visit Provider Family Medicine
DX: Z00.00 Encounter for general adult medical examination without abnormal findings (principal); Z13.0 Encounter for screening for diseases of the blood and blood-forming organs and certain disorders involving the immune mechanism; Z13.1 Encounter for screening for diabetes mellitus; Z13.220 Encounter for screening for lipoid disorders
CPT/HCPCS: 36415; 80053; 80061; 83036; 85025

== ENCOUNTER → 2022-06-26 | Outpatient (CLI) | payer OTHER, SELFPAY ==
[2022-07-03 20:30] LABS: HPV APTIMA, High Risk Negative (Negative)
== END | disposition home or self-care (01) ==
LOC: LABSPEC 11:58
PROVIDERS: PCP Family Medicine; Visit Provider Obstetrics & Gynecology
DX: Z12.4 Encounter for screening for malignant neoplasm of cervix (principal)
CPT/HCPCS: 87624; 88175; G0145

== ENCOUNTER → 2022-07-22 | Outpatient (CLI) | payer OTHER, SELFPAY ==
--- NOTE | 2022-07-22 10:16 | BI_ITS ---
MAMMOGRAPHY - BILATERAL SCREENING REASON FOR EXAM: Female, 42 years old. Routine annual screening examination. PERTINENT HISTORY: Grandmother with breast cancer. Aunts with breast cancer. TECHNIQUE: Digital bilateral breast lucas (3D mammographic acquisition) in the CC and MLO projections. 2-D mediolateral oblique (MLO) and craniocaudad (CC) views of both breasts were obtained. CAD: Full Field Digital Mammography with Computer Added Detection was performed. COMPARISON: Comparison is made with prior study 06/28/2020. FINDINGS: Breast Composition: There are scattered areas of fibroglandular density. There are no dominant masses or suspicious calcifications. Small benign appearing bilateral axillary nodes. No other significant abnormalities are identified. There has been no significant change since the prior study. BI/SCRN MAMM (CAD)W/LUCAS BILAT IMPRESSION: Stable bilateral screening mammogram. Yearly follow-up mammogram recommended. (A) ASSESSMENT CATEGORY: BIRADS Category 2: Benign. A letter regarding these results will be sent to the patient by the facility within 30 days. Approximately 10% of breast cancers are not detected by mammography. A normal mammogram should not delay biopsy of a clinically suspicious abnormality. [id number] Electronically Signed: Hi Muir MD at 11:10 EDT ,
== END | disposition home or self-care (01) ==
LOC: OPBI 10:11
PROVIDERS: PCP Family Medicine; Visit Provider Student in an Organized Health Care Education/Training Program
DX: Z12.31 Encounter for screening mammogram for malignant neoplasm of breast (principal); Z80.3 Family history of malignant neoplasm of breast
CPT/HCPCS: 77063; 77067

== ENCOUNTER 2022-09-21 05:58 | Day surgery (SDC) | payer OTHER, SELFPAY ==
--- NOTE | 2022-09-19 | FALS_PTH ---
PATIENT: TYLER HERNANDEZ LOC: [facility] [place][id number] AGE/SX: 42/F ROOM: RE09/21/[address]: Dr. Sam Chang MD : 1980 BED: DIS: 09/21/2022 SPEC #: [id number] RECD: 09/21/22 08:29 STATUS: PACHECO REQ #: [id number] MIKA: 09/19/22 00:[address]: Sam Chang DEPT: SURGICAL PATHOLOGY RECD BY: Riley Brand ENTERED: 09/21/22 10:33 SP TYPE: FALL TUBES OTHR DR: Estee Cortes DO Tissues: Fallopian tube Procedures: Surgery Specimen Level II Surgery Specimen Level IV HEADER OPERATION: Laparoscopic salpingectomy PRE-OP DIAGNOSIS: Sterilization TISSUE SUBMITTED: Bilateral fallopian tubes MICROSCOPIC DIAGNOSIS Right and left fallopian tubes, bilateral salpingectomies: Complete segments of fallopian tubes with focal endometriosis. AM:shayla 09/22/2022 MICROSCOPIC DESCRIPTION Slides are reviewed. GROSS DESCRIPTION Received in fixative is one container labeled with the patient's name and designated bilateral fallopian tubes. The specimen consists of bilateral fallopian tubes including fimbrial ends measuring 5 cm in length and 0.5 cm in diameter and 6.5 cm in length and 0.5 cm in diameter. The fallopian tubes are not identified as right or left. Sections reveal unremarkable cut surfaces. Obiee Report Developer sections are submitted in two cassettes with each cassette containing one fallopian tube. / VELMA:shayla 09/21/2022 TC:5 CPT: 27622, 00234
[2022-09-21 06:37] VITALS: BP 107/71; PULSE 70; RESP 16; TEMP 36.7; O2SAT 96; BMI 38.5
[2022-09-21 06:38] LABS: Internal QC Validated? YES +Cl - CLEAR BKGD; Pregnancy, Urine Negative Negative
[2022-09-21] MEDS: Lactated Ringers 1,000 ML 15 ML IV (06:45)
--- NOTE | 2022-09-21 07:10 | PCM.HP.BLA ---
History and Physical Date of Admission: 09/21/22 Chief complaint: Desires permanent sterilization History present illness: 42-year-old arrives for laparoscopic tubal ligation. No medical changes since last seen. All questions answered and consent signed Obstetric history: Patient with a history of 1 primary section and 1 SAB Past medical history: Anxiety Medications: Flonase, Zoloft Surgical history: section, arm surgery Allergies: No known drug allergies Social history: Denies smoking, alcohol use, drug use Family history: Denies history DVT or PE Review of systems: Besides above pertinent positives a full review of systems was performed and found to be negative Physical exam: Vitals: Blood pressure 107/71 pulse 78 respiratory rate 16 temperature 98.1 ?F SPO2 96% on room air General: Normal-appearing no acute distress HEENT: Normocephalic/atraumatic no cervical of adenopathy Cardiac/respiratory: No use accessory muscles, nonlabored breathing Abdomen: Soft, nontender, nondistended Extremities: No peripheral edema normal peripheral pulses Labs: Urine test negative Assessment plan: 42-year-old arrives for laparoscopic tubal ligation. Patient educated on risk benefits alternatives of the procedure. All questions were answered and consent was signed.
[2022-09-21 07:14] VITALS: PULSE 63; RESP 16
[2022-09-21] MEDS: Ipratropium/Albuterol Sulfate 3 ML AMPUL.NEB INHALATION (07:14)
--- NOTE | 2022-09-21 08:25 | DCINST_ITS ---
Discharge Instructions Diet Discharge Diet: No restrictions Activity Discharge Activity: Return to Normal Activity, May Drive and May Shower May resume sexual activity in: 4-6 weeks Lifting Restrictions: No lifting over 25 pounds for 2 to 3 weeks Dressing / Incision Call your doctor if your incision/area has: Continuous Slow Oozing and Foul Smelling Discharge Call your doctor if you observe: Fever of 101 or Higher, Shortness of breath and Chest pain Follow Up Care Please Follow Up With: Sam Chang MD When: 2 weeks postoperatively Test Results: Test results from this visit will be discussed in further detail at your follow- up appointment, if applicable. Discharge Plan Admission Attending Provider: Sam Chang Primary Care Provider: Estee Cortes Discharge Orders/Prescriptions Prescriptions: No Action fluticasone propionate 1 SPRAY spray,suspension 2 spray NASAL DAILY multivitamin Capsule 1 cap PO DAILY Referrals / Follow Up: Estee Cortes, [Primary Care Provider] - Disposition Disposition (needs filled in before D/C Order can be placed): Home, Self Care
--- NOTE | 2022-09-21 08:25 | PCM.OPRPT ---
Report of Operation Date of Procedure: 09/21/22 Pre-Operative Diagnosis: Desires permanent sterilization Post-Operative Diagnosis: Desires permanent sterilization Surgery/Procedure Performed:: Laparoscopic bilateral salpingectomy Description of Surgical Findings:: Surgeon: Sam Chang MD Anesthesia: General EBL: Minimal Urine output: 300 cc IV fluids: 700 cc Complications: None Specimen: Bilateral fallopian tubes Findings: Normal uterus, tubes, and ovaries Consent: Patient desires permanent sterilization in need of laparoscopic bilateral salpingectomy. Patient understands the risk of the procedure include but are not limited to visceral or vascular injury, prolonged hospitalization, blood loss need for transfusion, reoperation. Patient state understanding wish to proceed. All questions were answered and consent was signed. Procedure: Patient was brought back to the OR where general anesthesia was found to be adequate. Patient was prepared and draped in a dorsolithotomy position with yellowfin stirrups. A weighted speculum was placed in the posterior aspect of vagina and cervical dilators were used dilate the cervix. Uterine manipulator was placed. Varies needle was inserted at the umbilicus and water safety test was passed abdomen was insufflated. 5 mm supraumbilical midline trocar was inserted under direct visualization. Laparoscope was inserted and above findings were noted. Left lower quadrant 5 mm trocar was inserted under direct visualization. 8 mm right lower quadrant trocar was inserted under direct visualization. Right fallopian tube was identified to the fimbria and the mesosalpinx was cut and cauterized with the LigaSure device, fallopian tube was transected and sent to pathology. Left loping tube was identified to the fimbria and the mesosalpinx was cut and cauterized with the LigaSure device, fallopian tube transected and sent to pathology. Good hemostasis was noted bilaterally. Trochars were removed under direct visualization, abdomen was desufflated. Good hemostasis was noted. Trocar sites were closed in a subcutaneous fashion. Good hemostasis was noted. All counts were correct x2. Patient tolerated procedure well and was brought to recovery in stable condition. gliding pilot instructor: Bryan Grace
[2022-09-21 08:26] VITALS: BP 107/71; BP 122/77; PULSE 87; RESP 18; TEMP 36.2; O2SAT 99
[2022-09-21 08:34] VITALS: BP 107/71; BP 123/72; PULSE 82; RESP 18; O2SAT 99
[2022-09-21] MEDS: Ketorolac 30 MG/ML Syringe IV (08:43)
[2022-09-21 08:45] VITALS: BP 107/71; BP 115/75; PULSE 77; RESP 18; TEMP 36.4; O2SAT 100
[2022-09-21] MEDS: Acetaminophen 500 MG Tablet 1000 MG PO (09:16)
[2022-09-21 09:48] VITALS: BP 107/71; BP 116/80; PULSE 97; RESP 16; TEMP 36.8; O2SAT 95
== END 2022-09-21 09:57 | disposition home or self-care (01) ==
LOC: SDC 05:59 → AC 06:00
PROVIDERS: Anesthesiology; PCP Family Medicine; Referring Provider Obstetrics & Gynecology; Visit Provider Obstetrics & Gynecology
PROC: (CPT 58661; principal; 2022-09-21 07:15)
DX: Z30.2 Encounter for sterilization (principal); N80.203 Endometriosis of bilateral fallopian tubes, unspecified depth; F41.9 Anxiety disorder, unspecified; F32.A Depression, unspecified; Z79.899 Other long term (current) drug therapy
CPT/HCPCS: 58661; 00840; 81025; 88302; 88305; 94640; J7120; J2405

== ENCOUNTER → 2023-01-04 | Outpatient (CLI) | payer OTHER, SELFPAY ==
[2023-01-08 14:48] LABS: HPV APTIMA, High Risk Negative (Negative)
== END | disposition home or self-care (01) ==
PROVIDERS: PCP Family Medicine; Referring Provider Student in an Organized Health Care Education/Training Program; Visit Provider Student in an Organized Health Care Education/Training Program
DX: Z12.4 Encounter for screening for malignant neoplasm of cervix (principal)
CPT/HCPCS: 87624; 88175; G0145

== ENCOUNTER → 2023-01-28 | Outpatient (CLI) | payer OTHER, SELFPAY ==
--- NOTE | 2023-01-28 12:37 | MRI_ITS ---
STUDY: BILATERAL BREAST MR WITHOUT AND WITH CONTRAST REASON FOR EXAM: Female, 42 years old. Family history of breast neoplasm. Breast pain. TECHNIQUE: Multi-sequence multi-echo imaging of both breasts was performed with a dedicated breast coil. T1-weighted and T2-weighted images were performed before the administration of contrast. T1-weighted images were also performed after the intravenous administration of 19mlL of Clariscan contrast. COMPARISON: Bilateral mammograms dated July 2022 and June 2020. FINDINGS: RIGHT BREAST: Fatty replacement with minimal background enhancement. No abnormal enhancing masses or areas of non-mass enhancement in the right breast. LEFT BREAST: Fatty replacement with minimal background enhancement. No abnormal enhancing masses or areas of non-mass enhancement in the left breast. No enlarged or abnormal lymph nodes. No abnormality in the visualized regions of the chest or liver. MRI/Breast Bilateral W/O and W IMPRESSION: No abnormality on the breast MRI with contrast. Yearly follow-up screening mammogram recommended. CATEGORY: BIRADS Category 2: Benign. A letter regarding these results will be sent to the patient by the facility within 30 days. Electronically Signed: Samuel Logan, at 10:50 EDT ,
== END | disposition home or self-care (01) ==
PROVIDERS: PCP Family Medicine; Referring Provider Student in an Organized Health Care Education/Training Program; Visit Provider Student in an Organized Health Care Education/Training Program
DX: N64.4 Mastodynia (principal); Z80.3 Family history of malignant neoplasm of breast
CPT/HCPCS: 77049; A9575; A4216; C8908

== ENCOUNTER → 2023-04-28 | Outpatient (CLI) | payer OTHER, SELFPAY | END | disposition home or self-care (01) | PROVIDERS: PCP Family Medicine; Visit Provider Otolaryngology | DX: J32.9 Chronic sinusitis, unspecified (principal) | CPT/HCPCS: 87070; 87077; 87205 ==

== ENCOUNTER → 2023-07-08 | Outpatient (CLI) | payer OTHER, SELFPAY ==
[2023-07-08 10:11] LABS: Absolute Lymphocyte Count 1.99 X10^3/uL (0.83-4.51); Absolute Neutrophil Count 4.1 X10^3/uL (2.0-7.7); Basophil# 0.06 X10^3/uL; Basophil% 0.9 % (0-1); Eosinophil# 0.05 X10^3/uL; Eosinophils% 0.8 % (0-5); Hematocrit 41.7 % (37-47); Hemoglobin 13.2 g/dL (12.0-15.0); Lymphocyte # 1.99 X10^3/ul (0.83-4.51); Lymphocyte % 29.9 % (19-41); Mean Corp Hgb Conc 31.7 g/dL (32-36); Mean Corpuscular Hgb 28.4 pg (27.0-32.0); Mean Corpuscular Volume 89.7 fL (81-99); Mean Platelet Vol. 9.8 fl (6.2-12.0); Monocyte# 0.44 X10^3/uL; Monocyte% 6.6 % (0-10); NRBC Flagged by Analyzer 0 % (0-5); Neutrophil # 4.09 X10^3/uL (2.7-7.7); Neutrophil % 61.5 % (47-70); Platelet Count 354 K/mm3 (150-450); RBC Distribution Width CV 13.7 % (11.6-14.6); RBC Distribution Width SD 44.6 fl (35.1-43.9); Red Blood Count 4.65 M/mm3 (4.2-5.4); White Blood Count 6.7 K/mm3 (4.4-11.0)
[2023-07-08 11:05] LABS: ALB/GLOB Ratio 0.9 RATIO (0.9-2.4); AST(SGOT) 12 U/L (15-37); Alanine Aminotransfer ALT/SGPT 24 U/L (13-56); Albumin, Serum 3.7 g/dL (3.2-5.0); Alkaline Phosphatase 81 U/L (45-117); Anion Gap 4 (5-15); BUN 15 mg/dL (7-18); Calcium,Total 8.9 mg/dL (8.5-10.1); Chloride 112 mmol/L (98-107); Cholesterol 162 mg/dL (200); Creatinine, Serum 0.84 mg/dL (0.55-1.02); EST Glomerular Filtration Rate 80 mL/min (>60); Est Glom Filt Rate - Afr Amer 96 mL/min (>60); Globulin 4.2 g/dL (2.2-4.2); Glucose 93 mg/dL (74-106); High Density Lipoprotein 52 mg/dL; Protein, Total 7.9 g/dL (6.4-8.2); Sodium Level 138 mmol/L (136-145); Thyroid Stim Hormone (TSH) 0.95 uIU/mL (0.358-3.74); Triglycerides 67 mg/dL; Very Low Density Lipoprotein 13 mg/dL (5-40)
[2023-07-08 13:21] LABS: Hemoglobin A1c 5.1 % (3.8-5.6)
== END | disposition home or self-care (01) ==
PROVIDERS: PCP Family Medicine; Visit Provider Family Medicine
DX: Z00.00 Encounter for general adult medical examination without abnormal findings (principal); Z13.1 Encounter for screening for diabetes mellitus; Z13.220 Encounter for screening for lipoid disorders; Z13.29 Encounter for screening for other suspected endocrine disorder; Z13.0 Encounter for screening for diseases of the blood and blood-forming organs and certain disorders involving the immune mechanism
CPT/HCPCS: 36415; 80053; 80061; 83036; 84443; 85025

== ENCOUNTER → 2023-07-26 | Outpatient (CLI) | payer OTHER, SELFPAY ==
--- NOTE | 2023-07-26 13:30 | BI_ITS ---
MAMMOGRAPHY - BILATERAL SCREENING 3-D TOMOSYNTHESIS REASON FOR EXAM: Female, 43 years old. SCREENING PERTINENT HISTORY: No significant family history. TECHNIQUE: 2-D mammograms and 3-D Tomosynthesis of the breast (s) were performed. CAD was performed. COMPARISON: 07/22/2022 FINDINGS: The breast composition is composed of scattered fibroglandular density. Scattered benign calcifications are seen. No dense spiculated masses or suspicious microcalcifications are identified. No architectural distortion is identified. There is no skin thickening or retraction. There has been no significant change since the prior study. BI/SCRN MAMM (CAD)W/LUCAS BILAT IMPRESSION: No mammographic signs of malignancy. Routine yearly mammograms recommended. ASSESSMENT CATEGORY: BIRADS Category 1: Negative. A letter regarding these results will be sent to the patient by the facility within 30 days. FOLLOW UP RECOMMENDATION: Yearly follow up mammogram recommended. (A) Approximately 10% of breast cancers are not detected by mammography. A normal mammogram should not delay biopsy of a clinically suspicious abnormality. Electronically Signed: Francisco J Arvizu MD at 14:16 EDT ,
== END | disposition home or self-care (01) ==
LOC: OPBI 13:16
PROVIDERS: PCP Family Medicine; Referring Provider Family Medicine; Visit Provider Family Medicine
DX: Z12.31 Encounter for screening mammogram for malignant neoplasm of breast (principal)
CPT/HCPCS: 77063; 77067

== ENCOUNTER → 2024-08-03 | Outpatient (CLI) | payer OTHER, SELFPAY ==
[2024-08-03 10:54] LABS: ALB/GLOB Ratio 0.9 RATIO (0.9-2.4); AST(SGOT) 20 U/L (15-37); Alanine Aminotransfer ALT/SGPT 21 U/L (13-56); Albumin, Serum 3.8 g/dL (3.2-5.0); Alkaline Phosphatase 51 U/L (45-117); Anion Gap 5 (5-15); BUN 15 mg/dL (7-18); BUN/Creat Ratio 20.1 RATIO (10-20); Calcium,Total 9.2 mg/dL (8.5-10.1); Chloride 106 mmol/L (98-107); Cholesterol 173 mg/dL (200); Creatinine, Serum 0.75 mg/dL (0.55-1.02); EST Glomerular Filtration Rate 90 mL/min (>60); Est Glom Filt Rate - Afr Amer 109 mL/min (>60); Globulin 4.1 g/dL (2.2-4.2); Glucose 92 mg/dL (74-106); High Density Lipoprotein 52 mg/dL; Potassium 4.1 mmol/L (3.5-5.1); Protein, Total 7.9 g/dL (6.4-8.2); Sodium Level 136 mmol/L (136-145); Triglycerides 76 mg/dL; Very Low Density Lipoprotein 15 mg/dL (5-40)
[2024-08-03 10:56] LABS: Vitamin D,25 Hydroxy 33.9 ng/mL
[2024-08-03 11:44] LABS: Hemoglobin A1c 4.9 % (3.8-5.6)
== END | disposition home or self-care (01) ==
LOC: MFPLAB 08:49
PROVIDERS: PCP Family Medicine; Referring Provider Family Medicine; Visit Provider Family Medicine
DX: Z13.1 Encounter for screening for diabetes mellitus (principal); Z13.220 Encounter for screening for lipoid disorders; Z13.29 Encounter for screening for other suspected endocrine disorder; F32.9 Major depressive disorder, single episode, unspecified
CPT/HCPCS: 36415; 80053; 80061; 82306; 83036; 84443

== ENCOUNTER → 2024-08-15 | Outpatient (CLI) | payer OTHER, SELFPAY ==
--- NOTE | 2024-08-15 12:41 | BI_ITS ---
MAMMOGRAPHY - BILATERAL SCREENING REASON FOR EXAM: Female, 44 years old. Routine annual screening examination. PERTINENT HISTORY: Grandmother with breast cancer. Aunts with breast cancer. TECHNIQUE: Digital bilateral breast lucas (3D mammographic acquisition) in the CC and MLO projections. 2-D mediolateral oblique (MLO) and craniocaudad (CC) views of both breasts were obtained. CAD: Full Field Digital Mammography with Computer Added Detection was performed. COMPARISON: Is made with prior study July 26, 2023 and July 22, 2022. FINDINGS: Breast Composition: There are scattered areas of fibroglandular density. There are no dominant masses or suspicious calcifications. No other significant abnormalities are identified. There has been no significant change since the prior study. BI/SCRN MAMM (CAD)W/LUCAS BILAT IMPRESSION: Stable bilateral screening mammogram. Yearly follow-up mammogram recommended. (A) ASSESSMENT CATEGORY: BIRADS Category 1: Negative. A letter regarding these results will be sent to the patient by the facility within 30 days. Approximately 10% of breast cancers are not detected by mammography. A normal mammogram should not delay biopsy of a clinically suspicious abnormality. [id number] Electronically Signed: Hi Muir MD at 13:44 EST ,
== END | disposition home or self-care (01) ==
LOC: OPBI 12:40
PROVIDERS: PCP Family Medicine; Referring Provider Family Medicine; Visit Provider Family Medicine
DX: Z12.31 Encounter for screening mammogram for malignant neoplasm of breast (principal)
CPT/HCPCS: 77063; 77067

== ENCOUNTER → 2025-08-15 | Outpatient (CLI) | payer OTHER, SELFPAY ==
[2025-08-15 15:22] LABS: Hematocrit 40.4 % (37-47); Hemoglobin 13.1 g/dL (12.0-15.0); Mean Corp Hgb Conc 32.4 g/dL (32-36); Mean Corpuscular Volume 89.8 fL (81-99); Mean Platelet Vol. 9.7 fl (6.2-12.0); Platelet Count 394 K/mm3 (150-450); RBC Distribution Width CV 13.1 % (11.6-14.6); RBC Distribution Width SD 42.7 fl (35.1-43.9); Red Blood Count 4.50 M/mm3 (4.2-5.4); White Blood Count 10.9 K/mm3 (4.4-11.0)
[2025-08-15 16:05] LABS: Anion Gap 12 (5-15); BUN 11 mg/dL (4-19); BUN/Creat Ratio 17.1 RATIO (10-20); Calcium,Total 9.4 mg/dL (7.6-11.0); Carbon Dioxide 24.4 mmol/L (21.0-32.0); Chloride 102 mmol/L (98-108); Ferritin 40 ng/mL (22-378); Glucose 89 mg/dL (70-99); Iron 50 ug/dL (50-170); Potassium 4.1 mmol/L (3.3-5.1); Vitamin D,25 Hydroxy 22.3 ng/mL (30-100)
== END | disposition home or self-care (01) ==
LOC: MFPLAB 12:26
PROVIDERS: PCP Family Medicine; Visit Provider Family Medicine
DX: N92.6 Irregular menstruation, unspecified (principal); Z13.1 Encounter for screening for diabetes mellitus
CPT/HCPCS: 36415; 80048; 82306; 82728; 83540; 84443; 85027

== ENCOUNTER → 2025-08-23 | Outpatient (CLI) | payer OTHER, SELFPAY ==
--- NOTE | 2025-08-23 10:00 | BI_ITS ---
EXAM: SCRN MAMM (CAD)W/LUCAS BILAT DATE: 08/23/2025 CLINICAL HISTORY: F, Age 45 y/o , SCREENING Grandmother with breast cancer. Aunts with breast cancer. TECHNIQUE: Procedure Code: [id number] Modality: MG Procedure: SCRN MAMM (CAD)W/LUCAS BILAT COMPARISON: Prior exam(s) dated August 15, 2024.. FINDINGS: TISSUE DENSITY: There are scattered areas of fibroglandular density. Bilateral Breast Mammographic Findings: No significant masses, calcifications or other abnormalities are identified. No suspicious masses, areas of developing architectural distortion, or suspicious calcifications. There has been no significant interval change. BI/SCRN MAMM (CAD)W/LUCAS BILAT IMPRESSION: Stable bilateral screening mammogram. OVERALL FINAL ASSESSMENT BI-RADS 1: NEGATIVE. RECOMMENDATION: Routine annual follow-up in 1 Year Additional Recommendation none A letter with findings and recommendations will be mailed to the patient. Reading Location: [place] [id number]
== END | disposition home or self-care (01) ==
PROVIDERS: PCP Family Medicine; Referring Provider Family Medicine; Visit Provider Family Medicine
DX: Z12.31 Encounter for screening mammogram for malignant neoplasm of breast (principal)
CPT/HCPCS: 77063; 77067